=== PATIENT | female | born 1965 | race American Indian/Alaskan Native ===

== ENCOUNTER 2018-10-12 10:01 | Day surgery (SDC) | payer MEDICARE ==
--- NOTE | 2018-10-12 08:06 | Anesthesia Day of Surgery ---
Anesthesia Day of Surgery - Day of Surgery Patient Examined: Yes Patient H&P Reviewed: Yes Patient is NPO: Yes Beta Blockers: No
[2018-10-12] MEDS ORDERED: DIPRIVAN 10 MG/ML IV ONE ×3 (10:50→10:51)
[2018-10-12] MEDS ORDERED: NACL 0.9% 1000 ML 1,000 ML IV SCH (11:00)
--- NOTE | 2018-10-12 11:13 | Short Stay Summary ---
Short Stay Documentation Date of service: 10/12/18 Narrative H&P: The patient presents for diagnostic endoscopy due to dysphagia and persistent heartburn - History Past Medical History: anemia, arthritis, hypertension, other (Morbid obesity, BMI 60) Past Surgical History: cholecystectomy, hernia repair Social history: no significant social history - Allergies and Medications Current Medications: Allergies aspirin Adverse Reaction (Verified 10/12/18 10:25) Nausea iodine Adverse Reaction (Verified 10/12/18 10:25) Hives Home Medications Medication Instructions Recorded Confirmed Last Taken Type Lisinopril/Hydrochlorothiazide 20 mg PO DAILY 10/12/18 10/12/18 10/12/18 History Loratadine 20 mg PO DAILY 10/12/18 10/12/18 10/11/18 History Pantoprazole 40 mg PO DAILY 10/12/18 10/12/18 10/11/18 History Active Medications Sodium Chloride (Nacl 0.9% 1000 Ml) 1,000 mls @ 50 mls/hr IV DIRECT AMOR Last Admin: 10/12/18 10:38 Dose: 50 mls/hr Documented by: - Brief post op/procedure progress note Date of procedure: 10/12/18 Findings: see dictated report Estimated blood loss: none Pathology: none Condition: stable - Disposition Condition at discharge: Good Disposition: DC-01 TO HOME OR SELFCARE - Discharge Diagnoses (1) Chronic GERD Status: Acute (2) Dysphagia Status: Acute Short Stay Discharge Plan Activity: other (no driving for 24 hours) Weight Bearing Status: Full Weight Bearing Diet: regular Follow up with: MAGDALENA MCKNIGHT MD [Primary Care Provider] - 7 Days
--- NOTE | 2018-10-12 11:16 | Anesthesia Day of Surgery ---
Anesthesia Day of Surgery - Day of Surgery Patient Examined: Yes Patient H&P Reviewed: Yes Patient is NPO: Yes
--- NOTE | 2018-10-12 11:16 | Anesthesia Consultation ---
Anesthesia Consult and Med Hx Date of service: 10/12/18 - Airway Anesthetic Teeth Evaluation: Poor (missing teeth) ROM Head & Neck: Adequate Mental/Hyoid Distance: Adequate Mallampati Class: Class II Intubation Access Assessment: Probably Good - Pre-Operative Health Status ASA Pre-Surgery Classification: ASA3 Proposed Anesthetic Plan: MAC - Pulmonary Hx Asthma: Yes - Cardiovascular System Hx Hypertension: Yes - Gastrointestinal Hx Gastroesophageal Reflux Disease: Yes
--- NOTE | 2018-10-12 11:17 | Post Anesthesia Evaluation ---
- Post Anesthesia Evaluation Patient Participated: Yes Airway Patent: Yes Stable Respiratory Function: Yes Nausea/Vomiting: No Temp > 96.8F: Yes Pain Manageable: Yes Adequeate Hydration: Yes Anesthesia Complications: No Block Receding Appropriately: Not Applicable Patient on Ventilator: No
--- NOTE | 2018-10-12 11:22 | Operative Report ---
Operative Report Operative Report: Date of procedure: 10/12/2018 Procedure: Esophagogastroduodenoscopy with balloon dilation from 15-18 mm Preprocedure diagnosis: Dysphagia, history of chronic reflux, history of hiatal hernia. 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 Large hiatal hernia/paraesophageal hernia. Endoscopist: Dr. De Oliveira Anesthesia: Monitored anesthesia care per anesthesia department Medications: Propofol per anesthesia Estimated blood loss: 0 After careful discussion of the nature and purpose of the procedure as well as details the technique risks benefits and alternatives consent was obtained. The patient was placed in the left lateral decubitus position and medicated per anesthesia. The tip of the [employer]ifest EQ 570 video scope was passed per orum under direct vision into the esophagus and advanced into the stomach and descending duodenum. The descending duodenum the duodenal bulb and pylorus were symmetrical and normal. The scope was withdrawn into the stomach and the stomach then gently insufflated with air. The antrum was normal. The stomach was further insufflated and the scope was then retroflexed and partially withdrawn. The cardia revealed a large hernia defect which on forward view appeared to be mixed paraesophageal/hiatal hernia and appearance. The fundus and body of the stomach were within normal limits and easily distensible.The scope was then withdrawn in the forward position. The esophagogastric junction was at 36 cm. There was the appearance of a mild peptic stricture in the distal esophagus near the EG junction in light of symptoms this was dilated with a 15- 18 mm balloon over approximately 2 minutes total. The esophageal body was otherwise normal throughout. The procedure was was well tolerated and the patient was observed in recovery. Impressions: Mild peptic stricture of the distal esophagus. Status post dilation to 18 mm. Large hiatal hernia/paraesophageal hernia Plan: Continue aggressive medical management of acid reflux. Consideration of hernia repair and/or weight loss surgery. Office follow up in 2-3 months. Electronically signed: Peter De Oliveira MD
[2018-10-12 11:32] VITALS: BP 151/92
== END 2018-10-12 10:02 | disposition home or self-care (01) ==
LOC: GIO 10:01
PROVIDERS: ATTEND Internal Medicine Gastroenterology
DX: K22.2 Esophageal obstruction (principal); K44.9 Diaphragmatic hernia without obstruction or gangrene; K21.9 Gastro-esophageal reflux disease without esophagitis; E13.10 Other specified diabetes mellitus with ketoacidosis without coma; Z88.6 Allergy status to analgesic agent; Z91.041 Radiographic dye allergy status; Z79.899 Other long term (current) drug therapy; I10 Essential (primary) hypertension; J45.909 Unspecified asthma, uncomplicated
CPT/HCPCS: 43249; C1726; J2704; J7030